=== PATIENT | male | born 1985 | race Caucasian/White ===

== ENCOUNTER 2019-01-02 00:05 | Emergency (ER) | payer SELFPAY ==
[~2019-01-02] VITALS: Ht 188 cm; Wt 59.0 kg
[~2019-01-02 00:05] MED LIST: BUTA1CAP31 PO
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
[2019-01-02] MEDS ORDERED: TRAM50TA PO (01:34)
[2019-01-02] MEDS ORDERED: ORPH100T PO (01:34)
[2019-01-02] MEDS ORDERED: DICL50TA4 PO (01:34)
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
[2019-01-02 01:53] VITALS: BP 102/68
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
== END 2019-01-02 02:00 | disposition home or self-care (01) ==
LOC: ER 00:05
DX: S13.4XXA Sprain of ligaments of cervical spine, initial encounter (principal); S40.012A Contusion of left shoulder, initial encounter; F12.90 Cannabis use, unspecified, uncomplicated; V89.2XXA Person injured in unspecified motor-vehicle accident, traffic, initial encounter; Y93.89 Activity, other specified; Y92.89 Other specified places as the place of occurrence of the external cause; Y99.8 Other external cause status
CPT/HCPCS: 70450; 71101; 72125; 73000; 99284